=== PATIENT | female | born 1985 | race African-American/Black ===

== ENCOUNTER 2025-07-27 20:15 | Emergency (ER) | payer BC, OTHER ==
[2025-07-27] MEDS ORDERED: Ondansetron PF 4 MG/2 ML Vial ONE (22:25)
[2025-07-27 22:43] LABS: #Basophils 0.04 10x3/uL (0.0-0.2); #Eosinophils 0.05 10x3/uL (0.0-0.7); #Monocytes 0.35 10x3/uL (0.11-0.59); #Neutrophils 8.01 10x3/uL (1.40-6.50); %Basophils 0.4 % (0.0-1.0); %Eosinophils 0.5 % (0.0-10.0); %Lymphocytes 13.9 % (21.0-51.0); %Monocytes 3.6 % (0.0-10.0); %Neutrophils 81.3 % (42.0-75.0); Hematocrit 35.1 % (36.0-47.0); Hemoglobin 12.3 g/dL (12.0-16.0); Mean Corpuscular Hemoglobin 26.2 pg (27.0-31.0); Mean Corpuscular Volume 74.8 fL (78.0-98.0); Platelet Count 200 10x3/uL (130-400); Red Blood Cell (RBC) Count 4.69 mill/uL (4.20-5.40); White Blood Cell (WBC) Count 9.85 10x3/uL (4.8-10.8)
[2025-07-27 22:51] LABS: Microcytosis SLIGHT = 6-15 cells (100X) (0-5/hpf)
[2025-07-27 23:13] LABS: ALT (SGPT) 7 U/L (Less than 34); AST (SGOT) 19 U/L (11-34); Albumin 3.9 g/dL (3.1-4.5); Alkaline Phosphatase 61 U/L (40-110); Anion Gap 13 mmol/L (10-20); BUN (Urea Nitrogen) 10 mg/dL (7.0-18.7); Bilirubin, Total 0.4 mg/dL (0.3-1.2); Calc. Creatinine Clearance 0 mL/min (70-130); Calcium 8.9 mg/dL (7.8-10.44); Carbon Dioxide 24 mmol/L (22-29); Chloride 107 mmol/L (98-107); Globulin 3.2 g/dL (2.4-3.5); Glucose 113 mg/dL (70-105); Potassium 3.3 mmol/L (3.5-5.1); Sodium 141 mmol/L (136-145)
[2025-07-28 00:44] LABS: BHCG - Serum Negative (NEGATIVE); Pregs Control Background? CLEAR/WHITE (CLR/WHITE); Pregs Control Bar Appear? YES (CONTROL BAR)
== END 2025-07-28 00:55 | disposition home or self-care (01) ==
LOC: ERS 20:15
DX: R42 Dizziness and giddiness (principal); R11.2 Nausea with vomiting, unspecified; R10.9 Unspecified abdominal pain; R29.700 NIHSS score 0
CPT/HCPCS: 70450; 71045; 80053; 84484; 84703; 85025; 93005; 96374; J2405